=== PATIENT | male | born 1960 | race Caucasian/White ===

== ENCOUNTER 2016-03-15 09:06 | Emergency (ER) | payer SELFPAY ==
[~2016-03-15] VITALS: Ht 172.7 cm; Wt 80.0 kg
[2016-03-15 09:09] VITALS: BP 213/99; PULSE 59; RESP 18; TEMP 98.6; O2SAT 95
[2016-03-15] MEDS ORDERED: ATOR10TA15 PO (09:20)
[2016-03-15] MEDS ORDERED: ASPI81CH37 CHEW (09:20)
[2016-03-15] MEDS ORDERED: GLIP5TAB8 PO (09:20)
[2016-03-15] MEDS ORDERED: METF1000 PO (09:20)
[2016-03-15] MEDS ORDERED: LISI10TA3 PO (09:20)
[2016-03-15] MEDS ORDERED: SODIUM CHLORIDE 0.9% FLUSH 5 ML FLUSH IVF PRN (09:30)
[2016-03-15] MEDS ORDERED: SODIUM CHLOR 0.9% 1000 ML INJ 1,000 ML IV SCH (09:47)
[2016-03-15 09:49] LABS: AUTOMATED NEUTROPHIL # 13.3 TH/MM3 (1.8-7.7); BASOPHIL % 0.3 % (0.0-2.0); EOSINOPHIL % 0.2 % (0.0-4.0); HEMATOCRIT 49.3 % (39.0-51.0); HEMO FLAGS DIFF FINAL; LYMPH % 7.3 % (9.0-44.0); LYMPHOCYTE # 1.1 TH/MM3 (1.0-4.8); MEAN CELL VOLUME 86.3 FL (80.0-100.0); MEAN CORPUSCULAR HEMOGLOBIN 30.7 PG (27.0-34.0); MEAN CORPUSCULAR HGB CONC 35.6 % (32.0-36.0); MONO % 5.1 % (0.0-8.0); NEUT % 87.1 % (16.0-70.0); PLATELET COUNT 185 TH/MM3 (150-450); RED BLOOD COUNT 5.71 MIL/MM3 (4.50-5.90); RED CELL DISTRIBUTION WIDTH 12.8 % (11.6-17.2); WHITE BLOOD COUNT 15.3 TH/MM3 (4.0-11.0)
--- NOTE | 2016-03-15 09:49 | PD ---
HPI Chief Complaint: GI Complaint Time Seen by Provider: 09:47 Travel History International Travel<30 days: No Contact w/Intl Traveler<30days: No Traveled to known affect area: No History of Present Illness HPI 55-year-old male with history of diabetes, hypertension, presents to the ER today with left upper quadrant abdominal pains, nausea, vomiting. He denies any fevers, diarrhea, or other symptoms. He states he has had similar symptoms in the past, has been evaluated but no cause was identified. Modifying Factors: None Associated Signs & Symptoms: Left upper quadrant abdominal pain with nausea and vomiting Risk Factors: None PFSH Past Medical History High Cholesterol: Yes Diabetes: Yes Patient Takes Glucophage: Yes Hypertension: Yes Immunizations Current: Yes Influenza Vaccination: No Past Surgical History Abdominal Surgery: Yes (hernia sx) Tonsillectomy: Yes Social History Alcohol Use: No Tobacco Use: No Substance Use: No Allergies-Medications (Allergen,Severity, Reaction): Coded Allergies: No Known Allergies (Unverified , 03/15/16) Reported Meds & Prescriptions Reported Meds & Active Scripts Active Reported Aspirin Low Dose (Aspirin) 81 Mg Chew 81 Mg CHEW DAILY Lisinopril 10 Mg Tab 10 Mg PO DAILY Atorvastatin (Atorvastatin Calcium) 10 Mg Tab 10 Mg PO HS Glipizide 5 Mg Tab 2.5 Mg PO DAILY Take 30 minutes before a meal Metformin (Metformin HCl) 1,000 Mg Tab 1,000 Mg PO DAILY With a meal Review of Systems Except as stated in HPI: all other systems reviewed are Neg Physical Exam Narrative GENERAL: Well-nourished, well-developed elderly white male patient in mild distress. SKIN: Warm and dry. HEAD: Normocephalic. EYES: No scleral icterus. No injection or drainage. NECK: Supple, trachea midline. CARDIOVASCULAR: Regular rate and rhythm without murmurs, gallops, or rubs. RESPIRATORY: Breath sounds equal bilaterally. No accessory muscle use. GASTROINTESTINAL: Abdomen soft, mild left upper quadrant tenderness without guarding or rebound, nondistended. MUSCULOSKELETAL: No cyanosis, or edema. BACK: Nontender without obvious deformity. Mild left CVA tenderness. Data Data Last Documented VS Vital Signs Date Time Temp Pulse Resp B/P Pulse Ox O2 Delivery O2 Flow Rate FiO2 03/15/16 11:47 18 03/15/16 11:00 62 183/78 98 Room Air 03/15/16 09:09 98.6 Orders Electrocardiogram (03/15/16 ) Complete Blood Count With Diff (03/15/16 09:17) Comprehensive Metabolic Panel (03/15/16 09:17) Lipase (03/15/16 09:17) Urinalysis - C+S If Indicated (03/15/16 09:17) Iv Access Insert/Monitor (03/15/16 09:17) Ecg Monitoring (03/15/16 09:17) Oximetry (03/15/16 09:17) Sodium Chloride 0.9% Flush (Ns Flush) (03/15/16 09:30) Chest, Single Ap (03/15/16 09:17) Ct Abd/Pel W Iv Contrast(Rout) (03/15/16 09:47) Hydromorphone Pf Inj (Dilaudid Pf Inj) (03/15/16 10:00) Ondansetron Inj (Zofran Inj) (03/15/16 10:00) Sodium Chlor 0.9% 1000 Ml Inj (Ns 1000 M (03/15/16 09:47) Iohexol 350 Inj (Omnipaque 350 Inj) (03/15/16 10:43) Hydromorphone Pf Inj (Dilaudid Pf Inj) (03/15/16 11:30) Labs Laboratory Tests Test 03/15/16 03/15/16 09:30 11:05 White Blood Count 15.3 TH/MM3 Red Blood Count 5.71 MIL/MM3 Hemoglobin 17.5 GM/DL Hematocrit 49.3 % Mean Corpuscular Volume 86.3 FL Mean Corpuscular Hemoglobin 30.7 PG Mean Corpuscular Hemoglobin 35.6 % Concent Red Cell Distribution Width 12.8 % Platelet Count 185 TH/MM3 Mean Platelet Volume 9.8 FL Neutrophils (%) (Auto) 87.1 % Lymphocytes (%) (Auto) 7.3 % Monocytes (%) (Auto) 5.1 % Eosinophils (%) (Auto) 0.2 % Basophils (%) (Auto) 0.3 % Neutrophils # (Auto) 13.3 TH/MM3 Lymphocytes # (Auto) 1.1 TH/MM3 Monocytes # (Auto) 0.8 TH/MM3 Eosinophils # (Auto) 0.0 TH/MM3 Basophils # (Auto) 0.0 TH/MM3 CBC Comment DIFF FINAL Differential Comment Sodium Level 134 MEQ/L Potassium Level 3.5 MEQ/L Chloride Level 97 MEQ/L Carbon Dioxide Level 27.4 MEQ/L Anion Gap 10 MEQ/L Blood Urea Nitrogen 20 MG/DL Creatinine 0.96 MG/DL Estimat Glomerular Filtration 82 ML/MIN Rate Random Glucose 215 MG/DL Calcium Level 9.0 MG/DL Total Bilirubin 0.8 MG/DL Aspartate Amino Transf 12 U/L (AST/SGOT) Alanine Aminotransferase 20 U/L (ALT/SGPT) Alkaline Phosphatase 93 U/L Total Protein 7.3 GM/DL Albumin 4.0 GM/DL Lipase 412 U/L Urine Color YELLOW Urine Turbidity CLEAR Urine pH 6.5 Urine Specific [place] 1.050 Urine Protein 100 mg/dL Urine Glucose (UA) 70 mg/dL Urine Ketones 40 mg/dL Urine Occult Blood NEG Urine Nitrite NEG Urine Bilirubin NEG Urine Urobilinogen 2.0 MG/DL Urine Leukocyte Esterase NEG Urine RBC 1 /hpf Urine WBC 1 /hpf Urine Squamous Epithelial <1 /hpf Cells Urine Hyaline Casts 1 /lpf Urine Mucus FEW /lpf Microscopic Urinalysis Comment CULT NOT INDICATED MDM Medical Decision Making Medical Screen Exam Complete: Yes Emergency Medical Condition: Yes Medical Record Reviewed: Yes Interpretation(s) Laboratory Tests Test 03/15/16 03/15/16 09:30 11:05 White Blood Count 15.3 TH/MM3 (4.0-11.0) Hemoglobin 17.5 GM/DL (13.0-17.0) Neutrophils (%) (Auto) 87.1 % (16.0-70.0) Lymphocytes (%) (Auto) 7.3 % (9.0-44.0) Neutrophils # (Auto) 13.3 TH/MM3 (1.8-7.7) Sodium Level 134 MEQ/L (136-145) Chloride Level 97 MEQ/L (98-107) Blood Urea Nitrogen 20 MG/DL (7-18) Estimat Glomerular Filtration 82 ML/MIN (>89) Rate Random Glucose 215 MG/DL (74-106) Aspartate Amino Transf 12 U/L (15-37) (AST/SGOT) Lipase 412 U/L (73-393) Urine Specific [place] 1.050 (1.002-1.035) Urine Protein 100 mg/dL (NEG-TRACE) Urine Glucose (UA) 70 mg/dL (NEG) Urine Ketones 40 mg/dL (NEG) Urine Mucus FEW /lpf (OCC) Last 24 hours Impressions Abdomen/Pelvis CT 03/15/1647 Signed Impressions: Service Date/Time: Tuesday, March 15, 2016 10:35 - CONCLUSION: Intra-abdominal pelvic contents are negative with no acute abnormality. Each lower lobe reveals a 3 mm noncalcified subpleural nodule of indeterminate significance. This should be further evaluated on outpatient elective basis. Steve Quesada MD Chest X-Ray 03/15/16916 Signed Impressions: Service Date/Time: Tuesday, March 15, 2016 09:16 - CONCLUSION: 1. No acute cardiopulmonary findings. Sam Nayak MD Differential Diagnosis Pancreatitis versus gastritis versus gastroenteritis versus colitis Narrative Course Lab work would indicate underlying pancreatitis. CT of the abdomen otherwise not reveal any signs of acute intra-abdominal process. Patient has a pleural nodule which will need to be evaluated on an elective basis and outpatient. He will be given his CAT scan findings to follow-up with primary care physician. My plan would be to release him with clear liquid diet at home and pain medication relief. Return for any worsening in symptoms as necessary. I have discussed the findings with the patient and he states understanding. He should avoid alcohol while he is convalescing. Diagnosis Primary Impression: OTHER ACUTE PANCREATITIS WITHOUT NECROSIS OR INFECTION Additional Instructions: There is a pulmonary nodule seen on CT scan of uncertain concerned significance which will need to be followed up with your primary care physician as an outpatient. Return for any worsening in pain, vomiting, fevers, and as needed. Med/Other Pt SpecificInfo: Prescription(s) given Scripts Ondansetron Odt (Zofran Odt)4 Mg Tab4 Mg SL Q6HR PRN (Nausea/Vomiting) #10 TAB Ref 0 Prov:Jonas Levi MD 03/15/16 Hydrocodone-Acetaminophen (Lortab)5-325 Mg Tab1-2 Tab PO Q6H PRN (PAIN) #20 TAB Ref 0 Prov:Jonas Levi MD 03/15/16 Disposition: 01 DISCHARGE HOME Condition: Stable Jonas Levi MD Mar 15, 2016 09:49
[2016-03-15] MEDS ORDERED: ONDANSETRON HCL 4 MG/2 ML VIAL IVP ONE (10:00)
[2016-03-15] MEDS ORDERED: HYDROmorphone HCL PF 2 MG/ML VIAL IVS ONE (10:00)
[2016-03-15 10:14] LABS: ANION GAP 10 MEQ/L (5-15); AST (GOT) 12 U/L (15-37); BICARBONATE 27.4 MEQ/L (21.0-32.0); BLOOD UREA NITROGEN 20 MG/DL (7-18); CHLORIDE 97 MEQ/L (98-107); GLOMERULAR FILTRATION RATE 82 ML/MIN (>89); POTASSIUM 3.5 MEQ/L (3.5-5.1); SODIUM (NA) 134 MEQ/L (136-145)
[2016-03-15 10:19] LABS: ALKALINE PHOSPHATASE 93 U/L (45-117); ALT (GPT) 20 U/L (12-78); TOTAL BILIRUBIN ADULT 0.8 MG/DL (0.2-1.0)
[2016-03-15 10:31] VITALS: BP 200/93; PULSE 54; RESP 18; O2SAT 98
--- NOTE | 2016-03-15 10:38 | RADRPT ---
EXAM DATE/TIME: 03/15/2016 09:16 [facility] COMPARISON: No previous studies available for comparison. INDICATIONS : Chest and abdominal pain. MEDICAL HISTORY : None. SURGICAL HISTORY : None. ENCOUNTER: Initial ACUITY: 4 - 6 days PAIN SCORE: 5/10 LOCATION: Left chest FINDINGS: A single view of the chest demonstrates the lungs to be symmetrically aerated without evidence of mas s, infiltrate or effusion. The cardiomediastinal contours are unremarkable. Osseous structures are intact. CONCLUSION: 1. No acute cardiopulmonary findings. Sam Nayak MD on March 15, 2016 at 10:36 Board Certified Radiologist. This report was verified electronically.
[2016-03-15] MEDS ORDERED: IOHEXOL 350 MG/ML 10 ML VIAL (for RAD DIAG) IV ONE (10:43)
--- NOTE | 2016-03-15 10:54 | RADRPT ---
EXAM DATE/TIME: 03/15/2016 10:35 [facility] COMPARISON: No previous studies available for comparison. INDICATIONS : Left upper quadrant pain with vomiting. IV CONTRAST: 70 cc Omnipaque 350 (iohexol) IV ORAL CONTRAST: No oral contrast ingested. RADIATION DOSE: 9.21 CTDIvol (mGy) MEDICAL HISTORY : Hypertension. Diabetes SURGICAL HISTORY : Hernia repair ENCOUNTER: Initial ACUITY: 3 days PAIN SCALE: 5/10 LOCATION: Left upper quadrant TECHNIQUE: Volumetric scanning of the abdomen and pelvis was performed. Using automated exposure control and ad justment of the mA and/or kV according to patient size, radiation dose was kept as low as reasonably achievable to obtain optimal diagnostic quality images. FINDINGS: LOWER LUNGS: Each lower lobe reveals a subpleural 3 mm noncalcified nodule of indeterminate significance. LIVER: Homogeneous density without lesion. There is no dilation of the biliary tree. No calcified gallston es. Gallbladder sutures luminal structure without wall thickening SPLEEN: Normal size without lesion. PANCREAS: Within normal limits. KIDNEYS: Normal in size and shape. There is no mass, stone or hydronephrosis. ADRENAL GLANDS: Within normal limits. VASCULAR: There is no aortic aneurysm. BOWEL/MESENTERY: The stomach, small bowel, and colon demonstrate no acute abnormality. There is no free intraperitone al air or fluid. Appendix visualized and normal ABDOMINAL WALL: Within normal limits. RETROPERITONEUM: There is no lymphadenopathy. BLADDER: No wall thickening or mass. REPRODUCTIVE: Within normal limits. INGUINAL: There is no lymphadenopathy or hernia. MUSCULOSKELETAL: Degenerative changes of lower lumbar spine. CONCLUSION: Intra-abdominal pelvic contents are negative with no acute abnormality. Each lower lobe reveals a 3 mm noncalcified subpleura l nodule of indeterminate significance. This should be further evaluated on outpatient elective basis . Steve Quesada MD on March 15, 2016 at 10:48 Board Certified Radiologist. This report was verified electronically.
[2016-03-15 11:00] VITALS: BP 183/78; PULSE 62; RESP 18; O2SAT 98
[2016-03-15] MEDS ORDERED: HYDROmorphone HCL PF 1 MG/ML VIAL IV PUSH ONE (11:30)
[2016-03-15 11:34] LABS: BLOOD, URINE NEG (NEG); COMMENT (UR) CULT NOT INDICATED; CULTURE IF INDICATED CULT NOT INDICATED; GLUCOSE,URINE 70 mg/dL (NEG); HYALINE CAST, URINE 1 /lpf (RARE); KETONE, URINE 40 mg/dL (NEG); MUCUS URINE FEW /lpf (OCC); NITRITE,URINE NEG (NEG); PH, URINE 6.5 (5.0-8.5); SQUAMOUS EPITHELIAL CELL URINE <1 /hpf (0-5); URINE COLOR YELLOW (YELLW/STRAW)
[2016-03-15 11:47] VITALS: RESP 18
[2016-03-15] MEDS ORDERED: ZOFR4TAB3 SL (12:03)
[2016-03-15] MEDS ORDERED: HYDR-3533 PO (12:03)
[2016-03-15 12:23] VITALS: BP 109/60
--- NOTE | 2016-03-15 16:10 | EKG ---
Date Performed: 03/15/2016 Time Performed: 09:58:18 PTAGE: 55 years EKG: SINUS BRADYCARDIA BORDERLINE ECG NO PREVIOUS TRACING DOCTOR: Reilly Ray Interpretating Date/Time 03/15/2016 16:10:05
== END 2016-03-15 12:24 | disposition home or self-care (01) ==
LOC: NEPC 09:06
DX: K85.90 Acute pancreatitis without necrosis or infection, unspecified (principal); R11.2 Nausea with vomiting, unspecified; I10 Essential (primary) hypertension; E11.9 Type 2 diabetes mellitus without complications; E78.00 Pure hypercholesterolemia, unspecified; R94.31 Abnormal electrocardiogram [ECG] [EKG]
CPT/HCPCS: 71010; 74177; 80053; 81001; 83690; 85025; 93005; 96361; 96374; 96375; 96376; 99284; J1170; J2405; J7030; Q9967